=== PATIENT | female | born 1955 ===

== ENCOUNTER 2020-04-08 05:36 | Day surgery (SDC) | payer OTHER ==
[~2020-04-08 05:36] MED LIST: ATORVASTATIN CA40 MG PO; CELEBREX100 MG PO; IBU400 MG PO; JANUMET XR 50-1 EACH PO; MONTELUKAST SOD10 MG PO; TENORMIN25 MG PO; VALSARTAN-HCTZ1 EAC3 PO
== END 2020-04-08 17:35 | disposition home or self-care (01) ==
LOC: CIR.AMB 05:36
PROVIDERS: ATTEND Orthopaedic Surgery Sports Medicine
DX: M87.022 Idiopathic aseptic necrosis of left humerus (principal); Z20.822 Contact with and (suspected) exposure to COVID-19
CPT/HCPCS: 23472; C1776